=== PATIENT | male | born 1990 | race Caucasian/White ===

== ENCOUNTER 2020-01-19 14:30 | Emergency (ER) | payer BC, SELFPAY ==
--- NOTE | 2020-01-19 14:55 | XR_ITS ---
PROCEDURE: XR KNEE RT 3V CLINICAL INDICATION: pain Right knee pain COMPARISON: KNEE3R KNEE-3 VIEWS-RT from 06/03/2014 FINDINGS: No fracture or dislocation. No lytic or blastic change. There is normal mineralization. The joint spaces are well-preserved. No significant degenerative/arthritic changes. No erosive changes evident. Other findings:None. IMPRESSION: Negative right knee Dictated by: Kuldip Romero MD 01/19/2020 15:12 Electronically signed by Kuldip Romero MD in [place] 01/19/2020 15:12
[2020-01-19 14:58] VITALS: BP 138/81; PULSE 72; RESP 20; TEMP 36.6; O2SAT 96; BMI 41.0
--- NOTE | 2020-01-19 15:06 | HMH.EDUTC ---
[facility] [place] Clinical Impression: Knee pain Qualifiers: Chronicity: unspecified Laterality: right Qualified Code(s): M25.561 - Pain in right knee Disposition: Home, Self-Care Condition on Discharge: Good Instructions: DI for Knee Pain, Nabumetone Additional Instructions: *weight bearing as tolerated *RICE, Rest the extremity, Ice 15-20 minutes 3-4 times daily, Compress- wear the colin wrap as discussed as much as possible to help reduce swelling and pain, Elevate the extremity when at rest *Colin wrap is for support and help control swelling, use it except in the shower. Be sure that is not to tight but not to loose either May try over the counter elastic knee brace *Elevate when resting *Nabumetone as prescribe/ as needed for pain an inflammation. If need something more can take Tylenol in between doses of Nabumetone to help do not take Ibuprofen or Motrin with Nabumetone Immediately follow up with your family doctor for new or worsening of symptoms, or no noticeable improvement over the next 3-5 days Follow up with Dr Figueroa in the Orthopedics clinic as scheduled Return if needed Straight to ER if any life threatening symptoms Prescriptions: Nabumetone 750 mg PO BID #14 tab Transmission Status: Pending to [facility] Referrals: ProviderMillicent MD [Primary Care Provider] - Tee Figueroa MD [Staff Physician] - 02/02/20 9:00 am Time of Disposition: 15:36 Medical Decision Making - Blanco Inquiry Pt receiving controlled substance: No Blanco was queried for this patient: No Vital Signs: 01/19/20 14:58 Temperature 97.9 F Temperature Source Oral Pulse Rate [Right Brachial] 72 Respiratory Rate 20 Blood Pressure [Right Arm] 138/81 Blood Pressure Mean [Right Arm] 100 Blood Pressure Source [Right Arm] Automatic Cuff Blood Pressure Position [Right Arm] Sitting 02 Sat by Pulse Oximetry 96 Oxygen Delivery Method Room Air - Radiology Data #1 Image(s): Knee Image Reviewed: Yes I have reviewed radiologist's interpretation Preliminary Findings: No Fracture Seen [facility] [place] - General Stated complaint: Right Knee Time Seen by Provider: 01/19/20 15:06 Mode of Arrival: Ambulatory Source of Information: Patient Limitations: No Limitations Description of Symptoms (Recalled from Triage Doc. by RN): PATIENT STATES THAT APPROX 5 YEARS AGO HE INJURED HIS RIGHT KNEE, AND THAT OVER THE PAST MONTH IT HAS BEEN HURTING HIM MORE THAN NORMAL. HE HAS BEEN TAKING TYLENOL FOR PAIN WITH NO RELIEF HEENT Symptoms (Recalled from RN notes): No Resp Symptoms (Recalled from RN notes): No Skin Symptoms (Recalled from RN notes): Yes MS Symptoms (Recalled from RN notes): No Functional Status (Recalled from RN notes): WNL - History of Present Illness Provider Complaint: Patient states that about 5yr ago and fell and hurt his right knee. States that for the last month it has started hurting again and feels like bone on bone States that today he came in to get checked Denies new injury - Related Data Previous Rx's Medication Instructions Recorded Nabumetone 750 mg PO BID #14 tab 01/19/20 Allergies Allergy/AdvReac Type Severity Reaction Status Date / Time Penicillins Allergy Verified 03/27/18 10:17 - Worker's Comp Is this a Worker's Comp case?: No [facility] History - Hepatitis A Screen Drug use history?: No High risk sexual behaviors?: No History of sexually transmitted infection?: No Currently employed?: No Childcare worker?: No Do you have indoor plumbing?: Yes Do you have electricity?: Yes Attestation statement:: This patient has been screened for Hepatitis A risk factors. I have reviewed the patient's past medical history: Yes Medical History: Denies:: Cancer, Diabetes Mellitus Type 1, Diabetes Mellitus Type 2, Gastrointestinal Bleed, Hypertension, MRSA, Renal Disease, Ulcer Laterality Cases: Bilateral: Tonsillectomy Amputation: No - Social History Smoking Status: Current every day smoke
[2020-01-19 15:40] VITALS: BP 138/81; PULSE 72; RESP 20; TEMP 36.6; O2SAT 96
== END 2020-01-19 15:45 | disposition home or self-care (01) ==
PROVIDERS: Emergency Provider Nurse Practitioner
DX: M25.561 Pain in right knee (principal); F17.210 Nicotine dependence, cigarettes, uncomplicated; Z88.0 Allergy status to penicillin; Z90.09 Acquired absence of other part of head and neck
CPT/HCPCS: 73562; 99201

== ENCOUNTER → 2020-02-12 12:47 | Outpatient (CLI) | payer BC, SELFPAY ==
--- NOTE | 2020-02-12 13:00 | MR_ITS ---
PROCEDURE: MR KNEE RT WO CON CLINICAL INDICATION: evaluate for a meniscal tear GRNDIING IN KNEE XYRS. MEDIAL SIDED KNEE PAIN. NO TRAUMA. PAIN WHEN BENDING AND EXTENDING. PRIOR X-RAY 01-19-20 COMPARISON: XR KNEE RT 3V from 01/19/2020 TECHNIQUE: Routine multiplanar multi echo sequences are performed without gadolinium enhancement. FINDINGS: The cruciate ligaments, collateral ligaments, and quadriceps tendon have an unremarkable appearance. There is a small area of increased PD signal within the central aspect of the patellar tendon inferiorly suggesting an area of tendinopathy/tendinosis. No evidence of patellar tendon tear. There is some heterogeneous signal intensity within the patellar cartilage. The patellar cartilage thickness however is preserved. No evidence of knee joint effusion. No obvious meniscal tear. There is some increased signal present adjacent to the posterior horn of the medial meniscus and may be due to some underlying inflammatory changes but no convincing evidence of meniscal tear. There is a small knee joint effusion. No bone marrow edema or fracture. IMPRESSION: 1. No evidence of internal derangement. 2. There is a small knee joint effusion. 3. 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 4. Slight increased T2 signal adjacent to the posterior horn of the medial meniscus with some minimal at ill definition of the edge of the meniscus which could be due to some underlying inflammatory changes but no evidence of meniscal tear. 5. Small area of tendinopathy/tendinosis of the patellar tendon Dictated by: Kuldip Romero MD 02/15/2020 10:51 Electronically signed by Kuldip Romero MD in [place] 02/15/2020 10:51
== END ==
PROVIDERS: PCP Orthopaedic Surgery; Visit Provider Orthopaedic Surgery
DX: M25.561 Pain in right knee (principal)
CPT/HCPCS: 73721

== ENCOUNTER → 2021-08-15 09:53 | Outpatient (CLI) | payer OTHER, SELFPAY | PROVIDERS: Visit Provider Nurse Practitioner | DX: U07.1 COVID-19 (principal) | CPT/HCPCS: C9803; U0003; U0005 ==

== ENCOUNTER → 2022-02-21 15:39 | Outpatient (CLI) | payer OTHER, SELFPAY | LOC: SL 15:44 | PROVIDERS: PCP Family Medicine; Visit Provider Family Medicine | DX: G47.33 Obstructive sleep apnea (adult) (pediatric) (principal); R06.83 Snoring | CPT/HCPCS: 95806 ==

== ENCOUNTER 2023-03-25 09:37 | Emergency (ER) | payer SELFPAY ==
[2023-03-25 09:50] VITALS: BP 139/86; PULSE 76; RESP 18; TEMP 37; O2SAT 98; BMI 41.3
--- NOTE | 2023-03-25 10:20 | EXP.UTC ---
Discharge Plan Disposition Patient Disposition: Home, Self-Care Condition: Good Prescriptions Prescriptions: No Action No Known Home Medications Referrals Follow up/Referrals: Romaine William MD [Primary Care Provider] - See instructions Activity Restrictions/Add. Instructions Additional Instructions/Restrictions: Let steri strip wear off If it starts bleeding again apply pressure to the area as discussed in the [facility] Follow up with your Family Doctor if symptoms continue Return if needed Straight to ER if any life threatening symptoms Clinical Impressions Clinical Impression: Wound of left leg Qualifiers: Encounter type: initial encounter Qualified Code(s): S81.802A - Unspecified open wound, left lower leg, initial encounter Stand Alone Forms Stand Alone Forms: Work/School Release Instructions Patient Instructions: DI for Varicose Veins Discharge ED Provider: Joie Chery [facility] [place] HPI General Stated complaint: AO 03/25, left leg laceration Mode of Arrival: Ambulatory Source of Information: Patient Limitations: No Limitations Time Seen by Provider: 03/25/23 10:00 Description of Symptoms (Recalled from Triage Doc. by RN): PATIENT REPORTS HE HAD A SMALL BUG BITE TO LEFT CHINCHILLA, AND AFTER HE SCRATCHED IT HE STATES IT WOULDN'T STOP BLEEDING HEENT Symptoms (Recalled from RN notes): No Resp Symptoms (Recalled from RN notes): No Skin Symptoms (Recalled from RN notes): Yes MS Symptoms (Recalled from RN notes): No Functional Status (Recalled from RN notes): WNL History of Present Illness Provider Complaint: Patient states that he had a small scabbed area on his left lower chinchilla area States that he scratched it earlier and it started bleeding and he was having a hard time getting it to stop bleeding so he came in but it stopped bleeding just prior to arrival Related Data Home Medications Medication Instructions Recorded Confirmed No Known Home Medications 02/16/20 10/04/22 Allergies Allergy/AdvReac Type Severity Reaction Status Date / Time Penicillins Allergy Verified 10/04/22 15:56 Worker's Comp Is this a Worker's Comp case?: No [facility] Disclaimer: The information contained in this section may have been updated after the patient was seen, as this information can be updated by other users. Family History (Updated 10/04/22 @ 15:58 by Lindsay Finn) Other Cancer Coronary artery disease Diabetes Heart attack Social History Smoking Status: Former smoker alcohol intake: current substance use type: denies use current occupational status: employed Travel in the last 8 weeks: None household members: family housing: house ROS Obtained: Yes All systems reviewed & no additional complaints except as documented and Yes Systems reviewed as appropriate & no additional complaints except as documented Constitutional Constitutional: Reports system reviewed and no additional complaints, except as documented and Reports as per HPI ENT Ears, Nose, Mouth, and Throat: Reports system reviewed and no additional complaints, except as documented and Reports as per HPI Cardiovascular Cardiovascular: Reports system reviewed and no additional complaints, except as documented and Reports as per HPI Respiratory Respiratory: Reports system reviewed and no additional complaints, except as documented and Reports as per HPI Gastrointestinal Gastrointestingal: Reports system reviewed and no additional complaints, except as documented and as per HPI Integumentary/Breasts Skin/Breast: Reports system reviewed and no additional complaints, except as documented and Reports as per HPI Comments: small scabbed area on left lower chinchilla area after scratching that would not stop bleeding Neurologic Neurologic: Reports system reviewed and no additional complaints, except as documented and Reports as per HPI Physical Exam General General appearance: alert and in no apparent distress Chest Chest inspectio
[2023-03-25 10:29] VITALS: BP 139/86; PULSE 76; RESP 18; TEMP 37; O2SAT 98
== END 2023-03-25 10:34 | disposition home or self-care (01) ==
PROVIDERS: Emergency Provider Nurse Practitioner; PCP Family Medicine
DX: S81.802A Unspecified open wound, left lower leg, initial encounter (principal); Z87.891 Personal history of nicotine dependence; W26.8XXA Contact with other sharp object(s), not elsewhere classified, initial encounter
CPT/HCPCS: 99203; 99204; 99212; G0463

== ENCOUNTER 2024-05-11 17:38 | Emergency (ER) | payer OTHER, SELFPAY ==
[2024-05-11 18:35] VITALS: BP 122/86; PULSE 70; RESP 18; TEMP 36.9; O2SAT 100; BMI 43.0
--- NOTE | 2024-05-11 18:38 | EXP.UTC ---
Discharge Plan Disposition Patient Disposition: Home, Self-Care Condition: Good Prescriptions Prescriptions: New azithromycin [Zithromax] 250 mg tablet 250 mg PO UD DOSE PK Qty: 6 0RF Rx Instructions: Take two (2) tablets today, then one (1) tablet days #2 thru #5 prednisone 20 mg tablet 20 mg PO BID 3 Days Qty: 6 0RF [id number] [Bromfed DM] 2-30-10 mg/5 mL Syrup 5 ml PO Q6H PRN (Reason: Cough) Qty: 240 0RF Referrals Follow up/Referrals: Romaine William MD [Primary Care Provider] - See instructions Activity Restrictions/Add. Instructions Additional Instructions/Restrictions: Drink plenty of fluids. Take tylenol or ibuprofen for pain or fever. Take the medications as directed. Follow up with your regular doctor. GO TO THE ER FOR ANY WORSENING SYMPTOMS Clinical Impressions Clinical Impression: Pharyngitis Instructions Patient Instructions: Sore Throat, DI for Pharyngitis/Tonsillopharyngitis -- Adult, Prednisone, Azithromycin Print Language Print Language: Swedish Discharge ED Provider: Jame Elliott [facility] General Stated complaint: Sore throat Time Seen by Provider: 05/11/24 18:38 History of Present Illness Provider Complaint: He states that for the past 2 days he has had sore throat and malaise. He denies fever and congestion. He has been exposed to strep throat in his house. Related Data Previous Rx's ?Medication ?Instructions ?Recorded azithromycin 250 mg tablet 250 mg PO UD DOSE PK #6 tabs 05/11/24 (Zithromax) [id number]-[id number] 5 ml PO Q6H PRN Cough #240 mL 05/11/24 2 mg-30 mg-10 mg/5 mL oral syrup (Bromfed DM) prednisone 20 mg tablet 20 mg PO BID 3 days #6 tabs 05/11/24 Allergies Allergy/AdvReac Type Severity Reaction Status Date / Time Penicillins Allergy Verified 10/04/22 15:56 [facility] Disclaimer: The information contained in this section may have been updated after the patient was seen, as this information can be updated by other users. Surgical History (Updated 05/11/24 @ 18:42 by Disha A Pink, RN) History of tympanostomy tube placement History of tonsillectomy Family History (Updated 10/04/22 @ 15:58 by Lindsay Finn) Other Cancer Coronary artery disease Diabetes Heart attack Social History Smoking Status: Former smoker tobacco type: e-cigarettes alcohol intake: current alcohol intake frequency: holidays/special occasions only substance use type: denies use current occupational status: employed Travel in the last 8 weeks: None household members: family housing: house ROS Obtained: Yes All systems reviewed & no additional complaints except as documented Constitutional Constitutional: Reports as per HPI, Denies chills and Denies fever(s) Eyes Eyes: Denies eye discharge ENT Ears, Nose, Mouth, and Throat: Reports as per HPI Cardiovascular Cardiovascular: Denies chest pain Respiratory Respiratory: Denies chest congestion and Reports cough Gastrointestinal Gastrointestingal: Reports nausea; Denies abdominal pain, constipation, cramping, diarrhea or vomiting Musculoskeletal Musculoskeletal: Denies arthralgias Integumentary/Breasts Skin/Breast: Denies rash Neurologic Neurologic: Denies paresthesias Physical Exam General General appearance: alert and in no apparent distress Head Head exam: atraumatic, normocephalic and normal inspection Eye Eye exam: Present normal appearance, PERRL and EOMI ENT ENT exam: Present mucous membranes moist and normal external ear exam Expanded ENT Exam TM/Canal exam: Bilateral TM: erythema and bulging Nose exam: Absent sinus tenderness Mouth exam: Present normal external inspection; Absent drooling Teeth exam: Present normal inspection Throat exam: Present tonsillar erythema, tonsillomegaly and tonsillar exudate Neck Neck exam: Present normal inspection, full ROM and trachea midline; Absent tenderness, meningismus or lymphadenopathy Chest Chest inspection: Present normal inspection and symmetric chest wall rise; Absent tenderness Respiratory Respiratory exam: Present normal lung sounds bilaterally; Absent respiratory distress, wheezes, stridor or accessory muscle use Cardiovascular Cardiovascular exam: Present regular rate and normal rhythm; Absent systolic murmur or diastolic murmur Abdominal Exam Abdominal exam: Present soft and normal bowel sounds; Absent distention, tenderness, guarding, rebound or rigidity Extremities Exam Extremities exam: Present normal inspection and normal capillary refill; Absent calf tenderness Back Exam Back exam: Present normal inspection and full ROM; Absent tenderness, CVA tenderness (R) or CVA tenderness (L) Neurological Exam Neurological exam: Present alert, oriented X3 and CN II-XII intact Psychiatric Psychiatric exam: Present normal affect and normal mood Skin Skin exam: Present warm, dry, intact and normal color Medical Decision Making Medical Records Medical records reviewed: No I reviewed the patient's medical records. Screening: Per USPSTF and CDC recommendations, given the prevalence of disease in our region, it is our hospital?s policy to screen for HIV and viral Hepatitis for all patients aged 18 and over and those with ongoing risk factors. Blanco Inquiry Pt receiving controlled substance: No Lab Data Lab results reviewed: Yes I reviewed the patient's lab results.
[2024-05-11 18:45] LABS: UTC Strep Screen (Rapid) Negative (Negative)
[2024-05-11 19:02] VITALS: BP 122/86; PULSE 70; RESP 18; TEMP 36.9; O2SAT 100
== END 2024-05-11 19:05 | disposition home or self-care (01) ==
PROVIDERS: Emergency Provider Nurse Practitioner Family; PCP Family Medicine
DX: J02.9 Acute pharyngitis, unspecified (principal); R53.81 Other malaise; Z20.818 Contact with and (suspected) exposure to other bacterial communicable diseases
CPT/HCPCS: 87880; 99212; 99214; G0463

== ENCOUNTER 2025-04-04 05:34 | Emergency (ER) | payer BC, SELFPAY ==
--- NOTE | 2025-04-04 05:41 | CT_ITS ---
PROCEDURE INFORMATION: Exam: CT Abdomen And Pelvis With Contrast Exam date and time: 04/04/2025 6:01 AM Age: 34 years old Clinical indication: Abdominal pain; Additional info: Acute L flank pain x3h into llq TECHNIQUE: Imaging protocol: Computed tomography of the abdomen and pelvis with contrast. Radiation optimization: All CT scans at this facility use at least one of these dose optimization techniques: automated exposure control; mA and/or kV adjustment per patient size (includes targeted exams where dose is matched to clinical indication); or iterative reconstruction. Contrast material: ISOVUE; Contrast volume: 75 ml; Contrast route: IV; COMPARISON: No relevant prior studies available. FINDINGS: Liver: No acute findings. No mass. Gallbladder and biliary ducts: No acute findings, calcified stones or ductal dilation. Pancreas: No acute findings, focal abnormality or ductal dilation. Spleen: No splenomegaly or focal abnormality. Adrenal glands: No acute findings or mass. Kidneys and ureters: There is a 1 mm calculus in the distal left ureter just above the ureter vesicular junction with mild relative left hydroureter and pelviectasis with mild perinephric stranding. Stomach and bowel: No obstruction. No mucosal thickening. Appendix: No evidence of appendicitis. Intraperitoneal space: No free air. No significant fluid collection. Vasculature: No abdominal aortic aneurysm. Lymph nodes: There are multiple nonspecific nonpathologic but prominent lymph nodes in the mesentery. There are no mesenteric lymph nodes of pathologic dimensions. Urinary bladder: Unremarkable as visualized. Reproductive: Unremarkable as visualized. Bones/joints: No acute fracture. Soft tissues: There is a small uncomplicated fat-containing umbilical hernia. IMPRESSION: 1 mm calculus in the distal left ureter with associated mild obstructive uropathy.
[2025-04-04 05:43] VITALS: BP 116/88; PULSE 67; RESP 18; TEMP 37; O2SAT 100; BMI 38.7
--- NOTE | 2025-04-04 05:46 | ED_ITS ---
Discharge Plan Disposition Patient Disposition: Home, Self-Care Condition: Good Prescriptions Prescriptions: New oxycodone 5 mg tablet 5 mg PO Q6H PRN (Reason: pain) Qty: 10 0RF tamsulosin 0.4 mg capsule 0.4 mg PO HS Qty: 10 0RF ondansetron 4 mg tablet,disintegrating 4 mg PO Q6H PRN (Reason: nausea and vomiting) Qty: 10 0RF No Action azithromycin [Zithromax] 250 mg tablet 250 mg PO UD DOSE PK Qty: 6 0RF Rx Instructions: Take two (2) tablets today, then one (1) tablet days #2 thru #5 prednisone 20 mg tablet 20 mg PO BID 3 Days Qty: 6 0RF [id number] [Bromfed DM] 2-30-10 mg/5 mL Syrup 5 ml PO Q6H PRN (Reason: Cough) Qty: 240 0RF Referrals Follow up/Referrals: Henok Olguin MD [Staff Physician, Urology] - See instructions Referral Note: 1mm L UVJ stone needs follow up Romaine William MD [Primary Care Provider, Family Practice] - See instructions Activity Restrictions/Add. Instructions Additional Instructions/Restrictions: You were evaluated in the ER and are believed to be appropriate for discharge at this time. Drink plenty of water to help keep your urinary system working well and to flush out the stone. Take Tylenol and ibuprofen if needed for pain, do not exceed the recommended dose on the bottle. Drink water and eat a small snack each time you take these medications to avoid side effects. If Tylenol and ibuprofen do not control your pain, then take the prescribed oxycodone, only take this medication if needed for severe, breakthrough pain. Take this medication only as directed. Do not drive or operate machinery after taking it. This medication can cause addiction, dependence, and many side effects. Take the prescribed ondansetron (Zofran) if needed for nausea and vomiting. Take the prescribed tamsulosin to help open up the urinary tract and more easily passed the stone. Urinate through the provided strainer to capture the stone when it passes. Make an appointment with the urologist, Dr. Olguin. You have been referred to him for follow-up. Also make an appointment with your primary care doctor for reevaluation in 2 to 3 days. Return to the ER with any new, worsening, or otherwise concerning symptoms. Clinical Impressions Clinical Impression: Ureterolithiasis, Hydronephrosis Stand Alone Forms Stand Alone Forms: Work/School Release Instructions Patient Instructions: Kidney Stones -- Adult, DI for Acute Abdominal Pain Print Language Print Language: Dominican Discharge ED Provider: Crescencio Sow General Adult HPI General Chief complaint: Abdominal Pain Stated complaint: severe kidney pain Time Seen by Provider: 04/04/25 05:39 History of Present Illness HPI narrative: 34-year-old male with a history of ANGELI presents to the ER with acute left flank pain that started 3 hours prior to arrival. It woke him up from sleep. He states it has moved down slightly and is also radiating to the left lower quadrant/suprapubic area. He does not have any pain when he pees or blood in his urine. He is having significant nausea but no vomiting. He rates the pain 10 out of 10 and appears obviously uncomfortable on arrival to the ER. Patient reports no history of kidney stones. Any vomiting, diarrhea, constipation, no chest pain, headache, dizziness, numbness, tingling, or weakness, no fevers or chills, no other associated symptoms. Related Data Previous Rx's ?Medication ?Instructions ?Recorded azithromycin 250 mg tablet 250 mg PO UD DOSE PK #6 tab s 05/11/24 (Zithromax) [id number] 5 ml PO Q6H PRN Cou gh #240 mL 05/11/24 2 mg-30 mg-10 mg/5 mL oral syrup (Bromfed DM) prednisone 20 mg tablet 20 mg PO BID 3 days #6 tabs 05/11/24 ondansetron 4 mg disintegrating 4 mg PO Q6H PRN nausea and 04/04/25 tablet vomiting #10 tabs oxycodone 5 mg tablet 5 mg PO Q6H PRN pain #10 tab s 04/04/25 tamsulosin 0.4 mg capsule 0.4 mg PO HS #10 caps Allergies Allergy/AdvReac Type Severity Reaction Status Date / Time Penicillins Allergy Verified 10/04/22 15:[facility] Disclaimer: The information contained in this section may have been updated after the patient was seen, as this information can be updated by other users. Surgical History (Updated 05/11/24 @ 18:42 by Disha Pink RN) History of tympanostomy tube placement History of tonsillectomy Family History (Updated 10/04/22 @ 15:58 by Lindsay Finn) Other Cancer Coronary artery disease Diabetes Heart attack Social History Smoking Status: Never smoker alcohol intake: current alcohol intake frequency: holidays/special occasions only substance use type: denies use current occupational status: employed Travel in the last 8 weeks?: None household members: family housing: house Have you lived/traveled outside [place] in past 30 days?: No Contact w/someone who lives/traveled outside [place] past 30 days?: No Exposure to someone with infectious disease in past 14 days?: No Do you have a fever (greater than 100.4 F or 38 C)?: No Have you tested positive for COVID-19?: No Exposed to someone with COVID-19 in past 14 days?: No Do you have a sore throat?: No Do you have a cough?: No Do you have any weakness?: No Do you have any diarrhea?: No Are you experiencing any unusual bleeding?: No Do you have any muscle aches/pain?: No Do you have any abdominal pain?: Yes Are you experiencing loss of taste or smell?: No Other Medical History Have you received the Pneumonia Vaccine: No ROS Obtained: Yes Systems reviewed as appropriate & no additional complaints except as documented Per HPI Physical Exam General General appearance: alert Comment: Obviously uncomfortable but nontoxic-appearing Head Head exam: atraumatic and normocephalic Eye Eye exam: Present PERRL and EOMI ENT ENT exam: Present mucous membranes moist Neck Neck exam: Present normal inspection and full ROM Chest Chest inspection: Present symmetric chest wall rise Respiratory Respiratory exam: Absent respiratory distress or stridor Cardiovascular Cardiovascular exam: Present regular rate and normal rhythm Abdominal Exam Abdominal exam: Present soft; Absent distention, tenderness, guarding or rebound Extremities Exam Extremities exam: Present full ROM Back Exam Back exam: Present CVA tenderness (L); Absent CVA tenderness (R) Neurological Exam Neurological exam: Present alert and oriented X3; Absent motor sensory deficit Psychiatric Psychiatric exam: Present normal affect and normal mood Skin Skin exam: Present warm and dry Medical Decision Making Medical Records Medical records reviewed: Yes I reviewed the patient's medical records. Screening: Per USPSTF and CDC recommendations, given the prevalence of disease in our region, it is our hospital?s policy to screen for HIV and viral Hepatitis for all patients aged 18 and over and those with ongoing risk factors. Blanco Inquiry Pt receiving controlled substance: Yes Blanco was queried for this patient: No Reason not queried -: Emergent pt cond-no time (PDMP reviewed) Risks and benefits of using a controlled substance: were discussed with pt by me Vital Signs: 04/04/25 05:43 04/04/25 06:29 04/04/25 07:01 Temperature 98.6 F 97.9 F Temperature Source Oral Pulse Rate 53 L 53 L Pulse Rate [Left] 67 Respiratory Rate 18 16 Blood Pressure 124/67 97/52 L Blood Pressure [Right Arm] 116/88 Blood Pressure Mean [Right Arm] 97 Blood Pressure Source [Right Arm] Automatic Cuff 02 Sat by Pulse Oximetry 100 100 99 Oxygen Delivery Method Room Air Lab Data Lab Results 04/04/25 05:41: Urine Color Yellow, Urine Appearance Clear, Urine pH 6.0, Ur Specific [place] >= 1.030, Urine Protein Negative, Urine Glucose (UA) Negative, Urine Ketones Trace, Urine Blood 3+ A, Urine Nitrate Negative, Urine Bilirubin Negative, Urine Urobilinogen 0.2, Ur Leukocyte Esterase Negative, Urine RBC 50- 100, Urine WBC Occasional, Ur Squamous Epith Cells Occasional, Urine Bacteria Trace 04/04/25 05:44: WBC 9.1, RBC 5.25, Hgb 14.6, Hct 44.4, MCV 84.6, MCH 27.8, MCHC 32.9, RDW 13.2, Plt Count 279, MPV 10.5 H, Neut % (Auto) 60.2, Lymph % (Auto) 31.2, [place] % (Auto) 6.4, Eos % (Auto) 1.6, Baso % (Auto) 0.3, Neut # (Auto) 5.5, Lymph # (Auto) 2.8, [place] # (Auto) 0.6, Eos # (Auto) 0.2, Baso # (Auto) 0.0, PT 11.4, INR 1.03, Sodium 141, Potassium 3.5, Chloride 106, Carbon Dioxide 22, A nion Gap 16.5 H, BUN 20, Creatinine 1.00, Estimated Creat Clear 184, Estimated GFR 87, Est GFR ( Amer) 105, Glucose 122 H, Lactate 2.4 H, Calcium 9.8, Total Bilirubin 0.6, AST 47, ALT 39, Alkaline Phosphatase 68, Total Protein 7.6, Albumin 4.8, Globulin 2.8, Albumin/Globulin Ratio 1.7, Lipase 200 04/04/25 05:44 04/04/25 05:44 Orders (Tests/Meds): ED MEDICATIONS Generic Name Dose Route Start Last Admin Trade Name Freq PRN Reason Stop Dose Admin Sodium Chloride 10 ml 04/04/25 06:09 04/04/25 06:09 Sodium Chloride 0.9% 10ml Syr (Rad Only) IV 05/04/25 06:08 10 ml NEEDED PRN Administration Maintain IV Site Discontinued Medications Generic Name Dose Route Start Last Admin Trade Name Freq PRN Reason Stop Dose Admin Lactated Ringer's 1,000 mls @ 999 mls/hr 04/04/25 05:40 04/04/25 05:55 Lactated Ringer's 1000 Ml Bag IV 04/04/25 06:40 999 mls/hr .Q1H1M ONE Administration Iopamidol 75 ml 04/04/25 06:09 04/04/25 06:09 Iopamidol-370 (76%);100ml Bottle IV 04/04/25 06:10 75 ml ONCE ONE Administration Ketorolac Tromethamine 30 mg 04/04/25 05:40 04/04/25 05:54 Ketorolac 30mg/Ml Vial IV 04/04/25 05:41 30 mg ONCE ONE Administration Morphine Sulfate 4 mg 04/04/25 05:40 04/04/25 05:55 Morphine 4mg/Ml Syringe IV 04/04/25 05:41 4 mg ONCE ONE Administration Ondansetron HCl 4 mg 04/04/25 05:40 04/04/25 05:54 Ondansetron 4mg/2ml Vial IV 04/04/25 05:41 4 mg ONCE ONE Administration Tamsulosin HCl 0.4 mg 04/04/25 06:59 Tamsulosin 0.4mg Capsule PO 04/04/25 07:00 ONCE ONE ORDERS Category Date Time Status CT abdomen pelvis w con Stat Cat Scan 04/04/25 05:41 Completed Complete Blood Count Auto Diff Stat Lab 04/04/25 05:44 Completed Comprehensive Metabolic Panel Stat Lab 04/04/25 05:44 Completed Lactic Acid Stat Lab 04/04/25 05:44 Completed Lipase Stat Lab 04/04/25 05:44 Completed Prothrombin Time INR Stat Lab 04/04/25 05:44 Completed UA [Urinalysis and Microscopic] Stat Lab 04/04/25 05:41 Completed Medical Decision Narrative: In summary, this 34-year-old male with history of ANGELI presents to the emergency department today with sudden onset severe left flank pain radiating to the left lower quadrant and suprapubic area with associated nausea. On initial evaluation patient is hemodynamically stable and afebrile but appears acutely uncomfortable, nontoxic, exam notable for left CVA tenderness. Differential diagnosis includes but is not limited to ureterolithiasis, nephrolithiasis, hydronephrosis, kidney dysfunction, urinary tract infection, pyelonephritis, among others. Based on these concerns, I ordered hematologic and serum labs, urine studies, CT abdomen pelvis with contrast. Patient received morphine, Toradol, Zofran, IV fluids initially for treatment. Labs personally reviewed demonstrate CBC with no leukocytosis or anemia, normal platelets, PT/INR normal, CMP with slightly elevated anion gap already being treated with IV fluids, slight elevation in lactic also being treated with IV fluids, good kidney function, no evidence of renal injury, UA negative for findings of infection but RBCs are present consistent with possible stone CT abdomen pelvis personally interpreted demonstrates left distal ureteral stone with mild hydronephrosis, see radiology read for final interpretation. On reassessment patient is resting much more comfortably. I reviewed results with him and recommended outpatient follow-up with Dr. Olguin for which I provided a referral. I gave him a prescription for oxycodone, Zofran, tamsulosin. He also received a dose of tamsulosin in the ER. Patient was given instructions on continued symptomatic monitoring and management, careful use of narcotic pain medication with extensive discussion about potential for dependence and addiction, side effects, and not performing risky tasks after taking the medication due to the risk of side effects. He was also given instructions for follow-up and return precautions for the ER. He indicated understanding and the patient was discharged in stable condition. Critical Care Critical Care Time Critical Care Time: No
[2025-04-04] MEDS: ONDANSETRON 4MG/2ML VIAL 4 MG IV (05:54)
[2025-04-04] MEDS: KETOROLAC 30MG/ML VIAL 30 MG IV (05:54)
[2025-04-04] MEDS: MORPHINE 4MG/ML SYRINGE 4 MG IV (05:55)
[2025-04-04] MEDS: LACTATED RINGERS 1000ML 1,000 ML 999 ML IV (05:55)
[2025-04-04 06:00] LABS: Microscopic, Urine URINE MICROSCOPIC (MICROSCOPIC)
[2025-04-04 06:01] LABS: Hematocrit 44.4 % (42.0-52.0); Hemoglobin 14.6 g/dL (14.1-18.0); Immature Granulocytes % 0.3 %; Mean Corpuscular HGB Conc 32.9 g/dL (31.8-35.4); Mean Corpuscular Hemoglobin 27.8 pg (27.0-31.2); Mean Corpuscular Volume 84.6 fl (80-94); Nucleated Red Blood Cells % 0 %; Platelet Count 279 K/mm3 (142-424); Red Blood Count 5.25 M/mm3 (4.60-6.20); Red Cell Distribution Width-SD 41.1 fL; White Blood Count 9.1 K/mm3 (4.8-10.8)
[2025-04-04 06:09] LABS: Albumin Level 4.8 g/dl (3.5-5.0); Chloride 106 mmol/L (98-107); Sodium 141 mmol/L (136-145)
[2025-04-04] MEDS: SODIUM CHLORIDE 0.9% 10ML SYR (RAD ONLY) 10 ML IV (06:09)
[2025-04-04] MEDS: IOPAMIDOL-370 (76%);100ML BOTTLE 75 ML IV (06:09)
[2025-04-04 06:10] LABS: Potassium 3.5 mmoL/L (3.5-5.1)
[2025-04-04 06:11] LABS: Bilirubin,Urine Negative (Negative); Color,Urine YELLOW (Yellow); Glucose,Urine (UA) Negative (Negative); Ketones,Urine TRACE (Negative); Leukocyte Esterase,Urine Negative (Negative); PH,Urine 6.0 (5.0-8.5); Protein,Urine Negative (Negative); Specific Gravity, Urine >= 1.030 (1.005-1.030); Urobilinogen,Urine 0.2 EU/dl (0.2)
[2025-04-04 06:12] LABS: Alanine Aminotransferase 39 U/L (12-78); Albumin/Globulin Ratio 1.7 (1.1-1.8); Alkaline Phosphatase 68 U/L (38-126); Anion Gap 16.5 mEq/L (5-15); Aspartate Amino Transferase 47 U/L (17-59); Bilirubin,Total 0.6 mg/dl (0.2-1.3); Blood Urea Nitrogen 20 mg/dl (9-20); Carbon Dioxide 22 mmol/L (22.0-30.0); Creatinine Clearance Estimated 184 mL/min (50-200); Creatinine,Serum 1.00 mg/dl (0.66-1.25); Estimated Glomerular Filt Rate 87 ml/min (>60); GFR (African American) 105 ML/MIN (>60); Globulin 2.8 g/dL (1.3-3.2); Total Protein,Serum 7.6 g/dl (6.3-8.2)
[2025-04-04 06:13] LABS: Calcium 9.8 mg/dl (8.4-10.2); Glucose 122 mg/dl (74-100); INR 1.03 (0.9-1.1); Lipase 200 U/L (23-300); Prothrombin Time 11.4 seconds (10.1-12.5)
[2025-04-04 06:25] LABS: Bacteria,Urine Trace /lpf; RBC,Urine 50-100 #/hpf (0-3); Squamous Epithelial Cell,Urine Occasional #/hpf (0-5); WBC,Urine Occasional #/hpf (0-3)
[2025-04-04 06:29] VITALS: BP 124/67; PULSE 53; RESP 16; TEMP 36.6; O2SAT 100
[2025-04-04 07:01] VITALS: BP 97/52; PULSE 53; O2SAT 99
[2025-04-04 07:16] LABS: Reflex Lactic Add Lactic Reflex
[2025-04-04] MEDS: TAMSULOSIN 0.4MG CAPSULE 0.4 MG PO (07:19)
[2025-04-04 07:29] VITALS: BP 108/79; PULSE 74; RESP 17; TEMP 36.9; O2SAT 98
== END 2025-04-04 07:30 | disposition home or self-care (01) ==
PROVIDERS: Emergency Provider Emergency Medicine; PCP Family Medicine
DX: N13.0 Hydronephrosis with ureteropelvic junction obstruction (principal); R10.32 Left lower quadrant pain; M54.59 Other low back pain
CPT/HCPCS: 74177; 80053; 81001; 83605; 83690; 85025; 85610; 96361; 96374; 96375; 99284; J1885; J2270; J2405; J7120; Q9967